=== PATIENT | female | born 1955 | race Asian ===

== ENCOUNTER 2018-11-02 11:28 | Emergency (ER) | payer OTHER ==
[2018-11-02] MEDS: HYDROCODONE/APAP (5/325) TAB PO (11:54)
[2018-11-02] MEDS: ONDANSETRON (ODT) 4 MG TAB ODT (11:54)
== END 2018-11-02 12:22 | disposition home or self-care (01) ==
LOC: FTE 12:22
DX: M54.2 Cervicalgia (principal); E11.9 Type 2 diabetes mellitus without complications; I10 Essential (primary) hypertension
CPT/HCPCS: 99283; Z7502